=== PATIENT | male | born 1935 | race Caucasian/White ===

== ENCOUNTER 2018-07-12 10:18 | Outpatient (CLI) | payer MEDICARE ==
[2018-07-12] MEDS ORDERED: ISOVUE-370 76%-LOCM 1 ML ONE (12:47)
--- NOTE | 2018-07-12 14:31 | CT ---
CT ANGIOGRAM OF THE ABDOMEN: Date: 07/12/18 HISTORY: Follow-up abdominal aortic aneurysm. COMPARISON: 12/09/15. 02/20/14. TECHNIQUE: CT angiogram of the abdomen is performed in the axial plane. Three-dimensional reformatted images are submitted for interpretation. FINDINGS: Chronic changes lung bases. Liver, spleen, pancreas, and adrenal glands have appropriate arterial pha se enhancement. No gastrohepatic, retrocrural, or periportal lymphadenopathy. No mesenteric mass, lymphadenopathy, fr ee air, or free fluid. Visualized alimentary canal is unremarkable. Descending thoracic aorta is tortuous. No evidence of dissection or aneurysm. The celiac artery origi n, superior mesenteric artery origin, and left and right renal artery ostia are unremarkable. There a re surgical clips with attenuation artifact in the infrarenal abdominal aorta. No evidence of aneurys m or dissection in the infrarenal abdominal aorta. Visualized aortic bifurcation is unremarkable. There are bilateral renal cysts. There are cysts and scarring, especially over the left renal cortex. IMPRESSION: Ectasia, tortuosity, and atherosclerosis of the aorta. No evidence of aneurysm. POS: JA
== END 2018-07-12 10:19 | disposition home or self-care (01) ==
LOC: BICCT 10:18
PROVIDERS: ATTEND Internal Medicine Cardiovascular Disease
DX: I71.4 Abdominal aortic aneurysm, without rupture (principal); I70.0 Atherosclerosis of aorta
CPT/HCPCS: 74175; 82565